=== PATIENT | male | born 1955 | race Caucasian/White ===

== ENCOUNTER 2019-09-19 21:49 | Emergency (ER) | payer OTHER ==
[~2019-09-19] VITALS: Ht 182.9 cm; Wt 113.9 kg
[2019-09-19 21:53] VITALS: Ht 182.9 cm; Wt 113.9 kg
[2019-09-19 23:41] LABS: BASOPHIL % 0.8 % (0-2); PLATELET COUNT 350 x10^3mcL (130-400); RED CELL DISTRIBUTION WIDTH 14.8 % (11.5-14.5)
[2019-09-19 23:50] LABS: CALCIUM 8.5 mg/dL (8.5-10.1); CARBON DIOXIDE 27.4 mmol/L (21-32); CREATININE SERUM 1.4 mg/dL (0.7-1.3); POTASSIUM SERUM 4.4 mmol/L (3.5-5.1)
[2019-09-19 23:55] LABS: ALBUMIN 3.5 g/dL (3.4-5.0); BILIRUBIN TOTAL 0.2 mg/dL (0.20-1.00); TOTAL PROTEIN, SERUM 6.4 g/dL (6.4-8.2)
[2019-09-20 05:30] VITALS: BP 145/75
== END 2019-09-20 05:30 | disposition home or self-care (01) ==
LOC: ED 21:49
PROVIDERS: Emergency Medicine
DX: D64.89 Other specified anemias (principal); E11.9 Type 2 diabetes mellitus without complications
CPT/HCPCS: 36415; J7050; P9016

== ENCOUNTER 2019-10-04 21:56 | Inpatient (IN) | payer MEDICARE ==
[~2019-10-04] VITALS: Ht 182.9 cm; Wt 112.0 kg
[2019-10-04 22:03] VITALS: Ht 182.9 cm; Wt 112.0 kg
[2019-10-05 00:39] LABS: BASOPHIL % 0.4 % (0-2); PLATELET COUNT 383 x10^3mcL (130-400)
[2019-10-05 00:53] LABS: RED CELL DISTRIBUTION WIDTH 14.6 % (11.5-14.5)
[2019-10-05 01:06] LABS: CALCIUM 8.9 mg/dL (8.5-10.1); CREATININE SERUM 1.4 mg/dL (0.7-1.3); POTASSIUM SERUM 4.1 mmol/L (3.5-5.1)
[2019-10-05 01:10] LABS: ALBUMIN 3.8 g/dL (3.4-5.0); BILIRUBIN TOTAL 0.11 mg/dL (0.20-1.00); TOTAL PROTEIN, SERUM 6.6 g/dL (6.4-8.2)
[2019-10-05] MEDS ORDERED: ZYLOPRIM100 MG PO (03:27)
[2019-10-05] MEDS ORDERED: METOPROLOL ER-1 EACH (03:28)
[2019-10-05] MEDS ORDERED: THYROID (03:29)
[2019-10-05] MEDS ORDERED: VERAPAMIL HCL120 M2 (03:29)
[2019-10-05 04:36] LABS: T3 TOTAL 1.01 ng/mL
[2019-10-05 04:38] LABS: HDL CHOLESTEROL 26 mg/dL (40-60)
[2019-10-05 04:40] LABS: FREE T4 0.85 ng/dL (0.76-1.46); FREE THYROXINE INDEX 4.2 ug/dL (1.4-4.5); T4(THYROXINE) 9.5 ug/dL (4.7-13.3)
[2019-10-05 04:56] LABS: TRIGLYCERIDES 2713 mg/dL (<150)
[2019-10-05 05:05] LABS: CHOLESTEROL 209 mg/dL (<200)
[2019-10-05] MEDS ORDERED: ATORVASTATIN CA40 M1 PO (06:23)
[2019-10-05 06:24] VITALS: BP 117/78
[2019-10-05] MEDS ORDERED: FENOFIBRATE50 MG PO (06:24)
[2019-10-05] MEDS ORDERED: NATURE'S BLEND F1 MG PO (06:26)
[2019-10-05 06:34] VITALS: BP 146/61
[2019-10-05 06:49] LABS: microscopic required? NO
[2019-10-05] MEDS ORDERED: SYNTHROID0.175 MG PO (06:53)
[2019-10-05 07:48] LABS: CALCIUM 7.7 mg/dL (8.5-10.1); CARBON DIOXIDE 25.9 mmol/L (21-32); CHLORIDE SERUM 104 mmol/L (98-107); CREATININE SERUM 1.2 mg/dL (0.7-1.3); GFR1 > 60 mL/min; GLUCOSE SERUM 203 mg/dL (74-106); POTASSIUM SERUM 4.1 mmol/L (3.5-5.1); SODIUM SERUM 139 mmol/L (136-145)
[2019-10-05 07:51] LABS: BASOPHIL % 0.5 % (0-2); PLATELET COUNT 352 x10^3mcL (130-400)
[2019-10-05 08:01] LABS: RED CELL DISTRIBUTION WIDTH 14.6 % (11.5-14.5)
[2019-10-05 08:22] VITALS: BP 106/68; BP 145/48
[2019-10-05 08:27] LABS: urine erythrocyte NEGATIVE (NEGATIVE)
[2019-10-05 08:35] LABS: AMPHETAMINE QUAL UR NONE DETECTED (See below)
[2019-10-05 12:24] VITALS: BP 142/72
[2019-10-05 16:40] VITALS: BP 125/76
[2019-10-05 19:23] VITALS: BP 151/70
[2019-10-06 05:41] VITALS: BP 131/72
[2019-10-06 06:33] LABS: BASOPHIL % 0.6 % (0-2); PLATELET COUNT 325 x10^3mcL (130-400)
[2019-10-06 06:49] LABS: RED CELL DISTRIBUTION WIDTH 14.6 % (11.5-14.5)
[2019-10-06 07:04] LABS: CALCIUM 8.7 mg/dL (8.5-10.1); CARBON DIOXIDE 27.1 mmol/L (21-32); CHLORIDE SERUM 105 mmol/L (98-107); CREATININE SERUM 1.1 mg/dL (0.7-1.3); GFR1 > 60 mL/min; GLUCOSE SERUM 313 mg/dL (74-106); PHOSPHOROUS 3.8 mg/dL (2.5-4.9); POTASSIUM SERUM 4.7 mmol/L (3.5-5.1); SODIUM SERUM 136 mmol/L (136-145)
== END 2019-10-06 08:42 | disposition left against medical advice (07) | DRG 73 ==
LOC: ED 21:56 → DU 10-05 02:52 → MU 10-05 16:58
PROVIDERS: Emergency Medicine; ADMIT Family Medicine
PROC: 30233N1 Transfusion of Nonautologous Red Blood Cells into Peripheral Vein, Percutaneous Approach (ICD-10-PCS; principal; 2019-10-05)
DX: G90.8 Other disorders of autonomic nervous system (principal); N17.0 Acute kidney failure with tubular necrosis; D60.9 Acquired pure red cell aplasia, unspecified; C85.90 Non-Hodgkin lymphoma, unspecified, unspecified site; D64.81 Anemia due to antineoplastic chemotherapy; E11.22 Type 2 diabetes mellitus with diabetic chronic kidney disease; E11.65 Type 2 diabetes mellitus with hyperglycemia; I12.9 Hypertensive chronic kidney disease with stage 1 through stage 4 chronic kidney disease, or unspecified chronic kidney disease; E03.9 Hypothyroidism, unspecified; E78.5 Hyperlipidemia, unspecified; Z79.84 Long term (current) use of oral hypoglycemic drugs; Z53.29 Procedure and treatment not carried out because of patient's decision for other reasons; N18.9 Chronic kidney disease, unspecified
CPT/HCPCS: 82962; 84439; 97116-GP; G0378; J1815; J7030; J7040; P9016; Q0092; Q0163

== ENCOUNTER 2019-10-12 09:31 | Emergency (ER) | payer MEDICARE ==
[~2019-10-12] VITALS: Ht 182.9 cm; Wt 116.1 kg
[~2019-10-12 09:31] MED LIST: ATORVASTATIN CA40 M1 PO; FENOFIBRATE50 MG PO; METOPROLOL ER-1 EACH; NATURE'S BLEND F1 MG PO; SYNTHROID0.175 MG PO; THYROID; VERAPAMIL HCL120 M2; ZYLOPRIM100 MG PO
[2019-10-12 09:36] VITALS: Ht 182.9 cm; Wt 116.1 kg
[2019-10-12 10:40] LABS: ALBUMIN 3.7 g/dL (3.4-5.0); BILIRUBIN TOTAL 0.6 mg/dL (0.20-1.00); CALCIUM 7.7 mg/dL (8.5-10.1); CARBON DIOXIDE 25.4 mmol/L (21-32); PHOSPHOROUS 2.9 mg/dL (2.5-4.9); POTASSIUM SERUM 4.9 mmol/L (3.5-5.1)
[2019-10-12 11:21] VITALS: BP 139/66
[2019-10-12 11:31] LABS: PLATELET COUNT 394 x10^3mcL (130-400); RED CELL DISTRIBUTION WIDTH 14.5 % (11.5-14.5)
[2019-10-12 11:36] LABS: CREATININE SERUM 1.4 mg/dL (0.7-1.3)
[2019-10-12 11:37] LABS: TOTAL PROTEIN, SERUM 6.7 g/dL (6.4-8.2); URIC ACID 6.1 mg/dL (3.5-7.2)
[2019-10-12 11:56] LABS: BAND NEUTROPHIL 0 % (0-10); BASOPHIL 0 % (0-2); MONOCYTE 6 % (0-7); PLATELET MORPHOLOGY PLATELETS NORMAL; SEGMENTED NEUTROPHILS 63 % (37-75)
== END 2019-10-12 12:30 | disposition home or self-care (01) ==
LOC: ED 09:31
PROVIDERS: Emergency Medicine
DX: D64.9 Anemia, unspecified (principal); E11.65 Type 2 diabetes mellitus with hyperglycemia; C95.90 Leukemia, unspecified not having achieved remission
CPT/HCPCS: J7030

== ENCOUNTER 2020-05-06 06:58 | Emergency (ER) | payer OTHER, MEDICARE ==
[~2020-05-06] VITALS: Ht 182.9 cm; Wt 112.9 kg
[2020-05-06 07:09] VITALS: Ht 182.9 cm; Wt 112.9 kg
[2020-05-06 07:55] LABS: BASOPHIL % 0.6 % (0-2); PLATELET COUNT 317 x10^3mcL (130-400); RED CELL DISTRIBUTION WIDTH 14.1 % (11.5-14.5)
[2020-05-06 07:59] LABS: CALCIUM 8.9 mg/dL (8.5-10.1); CARBON DIOXIDE 29.6 mmol/L (21-32); CREATININE SERUM 1.4 mg/dL (0.7-1.3); POTASSIUM SERUM 4.7 mmol/L (3.5-5.1)
[2020-05-06 08:04] LABS: ALBUMIN 3.8 g/dL (3.4-5.0); BILIRUBIN TOTAL 0.49 mg/dL (0.20-1.00); TOTAL PROTEIN, SERUM 6.5 g/dL (6.4-8.2)
[2020-05-06 09:00] VITALS: BP 148/87
== END 2020-05-06 09:35 | disposition home or self-care (01) ==
LOC: ED 06:58
PROVIDERS: Emergency Medicine
DX: S20.211A Contusion of right front wall of thorax, initial encounter (principal); D64.9 Anemia, unspecified; N28.9 Disorder of kidney and ureter, unspecified; C95.90 Leukemia, unspecified not having achieved remission; I10 Essential (primary) hypertension; E11.9 Type 2 diabetes mellitus without complications; V49.49XA Driver injured in collision with other motor vehicles in traffic accident, initial encounter; Y93.I9 Activity, other involving external motion; Y92.413 State road as the place of occurrence of the external cause; Y99.8 Other external cause status
CPT/HCPCS: J1885